=== PATIENT | male | born 1945 | race Caucasian/White ===

== ENCOUNTER 2023-05-27 07:07 | Day surgery (SDC) | payer OTHER, MEDICAID ==
[~2023-05-27] VITALS: Ht 170.2 cm; Wt 65.9 kg
[~2023-05-27 07:07] MED LIST: ARIP2TAB27 PO; BALANCED SALT 15 ML OPHTHALMIC IRRIG.SOLN ONE; BUSP5TAB20 PO; EPINEPHrine 1:1,000 [1 MG/ML] VIAL ONE; FENO48TA12 PO; HYDR-4584 PO; KETOROLAC TROMETHAMINE 0.5% 5 ML OPHTHALMIC SOLUTION ONE; LIDOCAINE/PF 1% 2 ML VIAL ONE; LISI-657 PO; METH-386 PO; MIRT-89 PO; MOXIFLOXACIN HCL 0.5% 3 ML OPHTHALMIC SOLUTION ONE; PHENYLEPHRINE HCL 2.5% 2 ML OPHTHALMIC SOLUTION ONE; POVIDONE-IODINE 5% 30 ML OPHTHALMIC SOLUTION ONE; RINGERS SOLUTION,LACTATED 500 ML IV ONE; TETRACAINE HCL/PF 0.5% 4 ML OPHTHALMIC SOLUTION ONE; TROPICAMIDE 1% 2 ML OPHTHALMIC SOLUTION ONE; VENL-67 PO; VENL-68 PO
[2023-05-27] MEDS ORDERED: CHONDR SULF A SOD/HYALURONATE 1.05 ML KIT IO ONE (07:08)
[2023-05-27] MEDS ORDERED: HYALURONATE SOD/CHONDROITIN SOD 0.5 ML VIAL IO ONE (07:08)
[2023-05-27] MEDS ORDERED: HYALURONATE SOD 8.5MG/0.85ML 10 MG/ML SYRINGE IO ONE (07:08)
[2023-05-27] MEDS ORDERED: MIDAZOLAM HCL 2 MG/2 ML VIAL IVP ONE (07:08)
[2023-05-27] MEDS ORDERED: FentaNYL CITRATE PF 100 MCG/2 ML VIAL IVP ONE (07:08)
[2023-05-27] MEDS: TROPICAMIDE 1% 2 ML OPHTHALMIC SOLUTION OS SCH ×3 (07:27→07:38)
[2023-05-27] MEDS: PHENYLEPHRINE HCL 2.5% 2 ML OPHTHALMIC SOLUTION OS SCH ×3 (07:28→07:38)
[2023-05-27] MEDS: KETOROLAC TROMETHAMINE 0.5% 5 ML OPHTHALMIC SOLUTION OS SCH ×3 (07:28→07:38)
[2023-05-27] MEDS: MOXIFLOXACIN HCL 0.5% 3 ML OPHTHALMIC SOLUTION OS SCH ×3 (07:28→07:38)
[2023-05-27] MEDS ORDERED: RINGERS SOLUTION,LACTATED 500 ML IV ONE (08:00)
== END 2023-05-27 13:50 | disposition home or self-care (01) ==
LOC: SURGERY 07:07
PROVIDERS: ATTEND Ophthalmology
DX: H25.12 Age-related nuclear cataract, left eye (principal); E78.00 Pure hypercholesterolemia, unspecified; I10 Essential (primary) hypertension; Z79.899 Other long term (current) drug therapy
CPT/HCPCS: 66984; 93005; J0171; J3010; J3490; J2250; Q9967; J7120; V2632

== ENCOUNTER → 2023-07-22 | Day surgery (SDC) | payer OTHER, MEDICAID ==
[~2023-07-22] VITALS: Ht 170.2 cm; Wt 65.9 kg
[~2023-07-22] MED LIST changes: +FentaNYL CITRATE PF 100 MCG/2 ML VIAL IVP ONE; +MIDAZOLAM HCL 2 MG/2 ML VIAL IVP ONE; -TETRACAINE HCL/PF 0.5% 4 ML OPHTHALMIC SOLUTION ONE; -VENL-68 PO
[2023-07-22] MEDS: TROPICAMIDE 1% 2 ML OPHTHALMIC SOLUTION OD SCH ×3 (12:05→12:19)
[2023-07-22] MEDS: MOXIFLOXACIN HCL 0.5% 3 ML OPHTHALMIC SOLUTION OD SCH ×3 (12:05→12:20)
[2023-07-22] MEDS: PHENYLEPHRINE HCL 2.5% 2 ML OPHTHALMIC SOLUTION OD SCH ×3 (12:05→12:21)
[2023-07-22] MEDS: KETOROLAC TROMETHAMINE 0.5% 5 ML OPHTHALMIC SOLUTION OD SCH ×3 (12:05→12:19)
== END | disposition still patient (30) ==
LOC: SURGERY 11:11
PROVIDERS: ATTEND Ophthalmology
DX: H25.11 Age-related nuclear cataract, right eye (principal); F32.A Depression, unspecified; Z79.899 Other long term (current) drug therapy; Z98.890 Other specified postprocedural states
CPT/HCPCS: 66984; J0171; J3010; J3490; J2250; Q9967; J7120; V2632